=== PATIENT | female | born 1995 | race Two or more races ===

== ENCOUNTER 2022-01-16 16:57 | Emergency (ER) | payer MEDICAID ==
[~2022-01-16] VITALS: Ht 162.6 cm; Wt 65.8 kg
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
--- NOTE | 2022-01-16 17:12 | NUR ---
security at bedside for wanding.
--- NOTE | 2022-01-16 17:19 | NUR ---
COVID SWAB DONE AND SENT TO LAB
--- NOTE | 2022-01-16 17:54 | NUR ---
URINE SAMPLE SENT TO LAB
[2022-01-16 17:59] LABS: BASOPHILS % (AUTO) 0.3 % (0.0-2.0); EOSINOPHILS % (AUTO) 0.4 % (0.0-6.0); HEMATOCRIT 38 % (33-45); HEMOGLOBIN 12.8 g/dL (11.5-14.8); LYMPHOCYTES % (AUTO) 27.6 % (20.0-44.0); MEAN CORPUSCULAR HGB CONC 34 g/dl (31.0-36.0); MEAN CORPUSCULAR VOLUME 89 fL (82-100); MONOCYTES # (AUTO) 0.7 K/uL (0.1-1.30); NEUTROPHILS # (AUTO) 6.9 K/uL (1.8-8.9); NEUTROPHILS % (AUTO) 64.7 % (43.0-81.0); PLATELET COUNT (AUTO) 361 K/uL (150-450); RED BLOOD CELL COUNT(AUTO) 4.28 MIL/uL (4.0-5.2); WHITE BLOOD COUNT (AUTO) 10.7 K/uL (4.3-11.0)
[2022-01-16 18:07] LABS: CARBON DIOXIDE 23 mmol/L (21-32); CHLORIDE 106 mmol/L (98-107); CREATININE 0.9 mg/dL (0.6-1.3); GLUCOSE 103 mg/dL (74-106); SODIUM SERUM 140 mmol/L (136-145); UREA NITROGEN, BLOOD 8 mg/dL (7-18)
[2022-01-16 18:08] LABS: POTASSIUM 2.7 mmol/L (3.5-5.1)
[2022-01-16 18:12] LABS: BILIRUBIN,URINE NEGATIVE (NEGATIVE); COLOR,URINE YELLOW (YELLOW); LEUKOCYTE ESTERASE ,URINE SMALL (NEGATIVE); NITRITE, URINE NEGATIVE (NEGATIVE); PROTEIN,URINE NEGATIVE (NEGATIVE); UGLUCOSE NEGATIVE (NEGATIVE); UROBILINOGEN,URINE 0.2 EU/dL (0.2)
[2022-01-16 18:16] LABS: ALANINE AMINOTRANSFERASE 51 U/L (12-78); ALBUMIN 4.5 g/dL (3.4-5.0); ALCOHOL, BLOOD < 3 mg/dL (0-0); ALKALINE PHOSPHATASE 95 U/L (46-116); ASPARTATE AMINOTRANSFERASE 24 U/L (15-37); BILIRUBIN,DIRECT 0.1 mg/dL (0.0-0.2); BILIRUBIN,TOTAL 0.7 mg/dL (0.2-1.0); TOTAL PROTEIN, SERUM 7.9 g/dL (6.4-8.2)
[2022-01-16] MEDS ORDERED: OLANZAPINE 5 MG TABLET PO ONE (18:30)
[2022-01-16] MEDS ORDERED: IV NS 0.9% 1,000 ML BAG IV ONE (18:30)
[2022-01-16 18:34] LABS: BACTERIA,URINE 1+ /HPF (None Seen); MUCUS,URINE Few /LPF (None Seen)
[2022-01-16] MEDS ORDERED: POTASSIUM CL. PREMIX PERIPHER. 50 ML ONE (18:40)
[2022-01-16] MEDS ORDERED: OLANZAPINE 5 MG TABLET ONE (18:41)
[2022-01-16] MEDS: POTASSIUM CL. PREMIX PERIPHER. 50 ML IV SCH ×4 (19:05→22:33)
[2022-01-16] MEDS ORDERED: POTASSIUM CL. PREMIX PERIPHER. 150 ML ONE (19:27)
[2022-01-16] MEDS ORDERED: LORAZEPAM 1 MG TABLET ONE (20:21)
[2022-01-16] MEDS ORDERED: LORAZEPAM 1 MG TABLET PO ONE (20:30)
--- NOTE | 2022-01-16 23:11 | NUR ---
JORDON CRISIS CERTIFIED WELLNESS PROGRAM MANAGER AT BEDSIDE
[2022-01-17] MEDS ORDERED: LORAZEPAM 1 MG TABLET PO ONE
[2022-01-17] MEDS ORDERED: OLANZAPINE 5 MG TABLET PO ONE
[2022-01-17] MEDS ORDERED: OLANZAPINE 5 MG TABLET ONE (00:05)
[2022-01-17] MEDS ORDERED: LORAZEPAM 1 MG TABLET ONE (00:05)
--- NOTE | 2022-01-17 02:00 | NUR ---
PAST PSYCH MEDS : RESPERIDONE 2MG, BENZTROPINE 0.5 MG, ESCITALOPRAM 10MG. LAST PRESCRIBED FEBRUARY 2021, PER FATHER.
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
[2022-01-17] MEDS ORDERED: BENZ0.5T43 PO (03:40)
[2022-01-17] MEDS ORDERED: RISP2TAB85 PO (03:40)
[2022-01-17] MEDS ORDERED: ESCI10TA PO (03:40)
--- NOTE | 2022-01-17 04:30 | NUR ---
PT IS RESTING COMFORTABLY IN BED, WARM BLANKETS PROVIDED. WILL CONTINUE TO MONITOR
--- NOTE | 2022-01-17 07:48 | NUR ---
PT SLEEPING IN BED, EASILY AROUSABLE, VS STABLE
--- NOTE | 2022-01-17 09:59 | NUR ---
PT EATIMG FOOD AT BEDSIDE
[2022-01-17] MEDS ORDERED: OLAN5TAB3 PO (10:17)
--- NOTE | 2022-01-17 10:29 | NUR ---
IV removed. Catheter intact and site benign. Pressure and 4x4 applied to site. No bleeding noted.
--- NOTE | 2022-01-17 10:29 | NUR ---
Patient discharged to home in stable condition. Written and verbal after care instructions given. Patient verbalizes understanding of instruction.
[2022-01-17 10:31] VITALS: BP 112/70
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
== END 2022-01-17 10:32 | disposition home or self-care (01) ==
LOC: ER 17:02
DX: F22 Delusional disorders (principal); F43.10 Post-traumatic stress disorder, unspecified; G47.00 Insomnia, unspecified; E87.6 Hypokalemia; E86.0 Dehydration; R63.0 Anorexia; Z68.24 Body mass index [BMI] 24.0-24.9, adult; R82.4 Acetonuria; Z20.822 Contact with and (suspected) exposure to COVID-19; R94.31 Abnormal electrocardiogram [ECG] [EKG]; F41.9 Anxiety disorder, unspecified
CPT/HCPCS: 36415; 80048; 80076; 80143; 80307; 80320; 81001; 84703; 85025; 87086; 87426; 93005; 96365; 96366; 99285; C9803; J3480 ×2; J7030; G0480